=== PATIENT | male | born 1970 | race Caucasian/White ===

== ENCOUNTER 2019-12-03 19:06 | Emergency (ER) | payer OTHER ==
[~2019-12-03] VITALS: Ht 170.2 cm; Wt 68.0 kg
--- NOTE | 2019-12-03 19:19 | NUR ---
Patient ambulating with steady gait. A&Ox4. c/o coughing up green phlem for bodyache for 1 week. Breathing even and unlabored. no SOB noted. satting at 99% on RA. Speech is clear and able to make needs known / follow commands. Denies any / GI distress. Skin warm and dry to touch. Able to move extremities freely without diffiuclty.
--- NOTE | 2019-12-03 19:20 | NUR ---
Dr. Martínez at bedside for MSE
[2019-12-03] MEDS ORDERED: MECLIZINE HCL 25 MG TABLET PO ONE (19:30)
[2019-12-03] MEDS ORDERED: IV NORMAL SALINE 1000 ML BAG IV ONE (19:30)
[2019-12-03 19:39] LABS: BASOPHILS % (AUTO) 0.5 % (0.0-2.0); EOSINOPHILS % (AUTO) 0.7 % (0.0-7.0); HEMATOCRIT 39.9 % (36.7-47.1); HEMOGLOBIN 14.1 g/dL (12.5-16.3); LYMPHOCYTES # (AUTO) 0.4 K/uL (20.0-40.0); LYMPHOCYTES % (AUTO) 6.2 % (20.5-51.5); MEAN CORPUSCULAR HEMOGLOBIN 32.1 uug (23.8-33.4); MEAN CORPUSCULAR HGB CONC 35 g/dL (32.5-36.3); MEAN CORPUSCULAR VOLUME 90.6 fL (73.0-96.2); MONOCYTES # (AUTO) 0.4 K/uL (2.0-10.0); MONOCYTES % (AUTO) 6.4 % (0.0-11.0); NEUTROPHILS % (AUTO) 86.2 % (38.5-71.5); PLATELET COUNT (AUTO) 137 K/uL (152-348); WHITE BLOOD COUNT (AUTO) 6.9 K/uL (3.6-10.2)
[2019-12-03 19:48] LABS: CREATININE 1.2 mg/dL (0.6-1.3); POTASSIUM 3.7 mmol/L (3.5-5.1)
[2019-12-03] MEDS ORDERED: MECLIZINE HCL 25 MG TABLET ONE (19:48)
[2019-12-03 19:53] LABS: BILIRUBIN,DIRECT 0.1 mg/dL (0.0-0.2); BILIRUBIN,TOTAL 0.4 mg/dL (0.2-1.0)
[2019-12-03] MEDS ORDERED: AZITHROMYCIN 250 MG TABLET PO ONE (20:00)
[2019-12-03] MEDS ORDERED: AZITHROMYCIN 250 MG TABLET ONE (20:01)
[2019-12-03] MEDS ORDERED: DEXAMETHASONE SOD PHOSPHATE 4 MG INJ IV ONE (20:15)
[2019-12-03] MEDS ORDERED: DEXAMETHASONE SOD PHOSPHATE 4 MG INJ ONE (20:17)
--- NOTE | 2019-12-03 20:40 | NUR ---
IV removed. Catheter intact and site benign. Pressure and 4x4 gauze applied to site. No bleeding noted. Patient discharged to home in stable conditon. Written and verbal after care instructions given. Patient verbalizes understanding of instructions. Patient ambulating with steady gait. No NAD noted
[2019-12-03 20:51] VITALS: BP 144/88
== END 2019-12-03 20:40 | disposition home or self-care (01) ==
LOC: ER 19:06
DX: J02.8 Acute pharyngitis due to other specified organisms (principal); J40 Bronchitis, not specified as acute or chronic; R42 Dizziness and giddiness; R91.8 Other nonspecific abnormal finding of lung field
CPT/HCPCS: 36415; 71045; 80048; 80076; 84484; 85025; 93005; 99285; J1100; 70030-TC; A4663; J7030; J8597; Q0144